=== PATIENT | male | born 1990 | race Caucasian/White ===

== ENCOUNTER 2023-05-25 11:46 | Emergency (ER) | payer OTHER ==
[~2023-05-25] VITALS: Ht 177.8 cm; Wt 91.2 kg
[2023-05-25] MEDS ORDERED: CATAPRES0.2 M1 PO (12:09)
[2023-05-25] MEDS ORDERED: DILT120ERA PO (12:09)
[2023-05-25] MEDS ORDERED: BUPRENORPHINE HC8 MG SL (12:10)
[2023-05-25] MEDS ORDERED: CHLO5 PO (12:10)
[2023-05-25] MEDS ORDERED: PROPRANOLOL HCL80 MG PO (12:11)
[2023-05-25 13:08] LABS: BASOPHILS ABSOLUTE AUTO 0.02 K/mm3 (0.00-0.23); BASOPHILS PERCENT AUTO 0 % (0-2); EOSINOPHILS ABSOLUTE AUTO 0.34 K/mm3 (0.00-0.68); EOSINOPHILS PERCENT AUTO 3 % (0-6); Hematocrit 47.8 % (37.0-53.0); Hemoglobin 15.9 g/dL (13.5-17.5); IMMATURE GRAN ABSOLUTE AUTO 0.03 K/mm3 (0.00-0.10); IMMATURE GRAN PERCENT AUTO 0 % (0-1); LYMPHOCYTES PERCENT AUTO 22 % (21-46); MONOCYTES ABSOLUTE AUTO 0.96 K/mm3 (0.16-1.47); MONOCYTES PERCENT AUTO 9 % (4-13); Mean Corpuscular HGB 28.4 pg (26.0-34.0); Mean Corpuscular HGB Conc 33.3 g/dL (31.5-36.5); Mean Corpuscular Volume 86 fL (80-100); Mean Platelet Volume 9.7 fL (9.1-12.4); NEUTROPHILS ABSOLUTE AUTO 6.74 K/mm3 (1.96-9.15); NEUTROPHILS PERCENT AUTO 65 % (41-73); Platelet Count 269 K/mm3 (150-400); RDW Standard Deviation 40.4 fL (35.1-46.3); Red Blood Cell Count 5.59 M/mm3 (4.30-5.90); White Blood Cell Count 10.39 K/mm3 (4.00-11.30)
[2023-05-25 13:45] LABS: Albumin, Blood 3.9 g/dL (3.4-5.0); Bilirubin, Total 0.4 mg/dL (0.1-1.0); Bun/Creatinine Ratio 22.8 (12.0-20.0); Calcium, Blood 9.3 mg/dL (8.5-10.1); Creatinine, Blood 0.83 mg/dL (0.60-1.20); Globulin, Blood 3.8 g/dL (2.2-4.0); Potassium, Blood 4.3 mmol/L (3.5-5.5); Total Protein, Blood 7.7 g/dL (6.4-8.2)
[2023-05-25] MEDS ORDERED: Cardizem Cd180 MG PO (15:25)
[2023-05-25 15:30] VITALS: BP 149/97
== END 2023-05-25 15:44 | disposition home or self-care (01) ==
LOC: ER 11:46
PROVIDERS: Emergency Medicine
DX: I10 Essential (primary) hypertension (principal); F19.10 Other psychoactive substance abuse, uncomplicated
CPT/HCPCS: 70450; 71046; 80053; 84484; 85025; 93005; 93010; 96374; 99285-25; J0360

== ENCOUNTER 2023-06-06 04:12 | Emergency (ER) | payer OTHER ==
[~2023-06-06] VITALS: Ht 177.8 cm; Wt 90.7 kg
[~2023-06-06 04:12] MED LIST: BUPRENORPHINE HC8 MG SL; CATAPRES0.2 M1 PO; CHLO5 PO; Cardizem Cd180 MG PO; DILT120ERA PO; PROPRANOLOL HCL80 MG PO
[2023-06-06 05:05] VITALS: BP 149/85
== END 2023-06-06 05:10 | disposition home or self-care (01) ==
LOC: ER 04:12
DX: H60.91 Unspecified otitis externa, right ear (principal); H91.91 Unspecified hearing loss, right ear; Z79.899 Other long term (current) drug therapy; I10 Essential (primary) hypertension; F17.210 Nicotine dependence, cigarettes, uncomplicated
CPT/HCPCS: A9270